=== PATIENT | male | born 1980 | race African-American/Black ===

== ENCOUNTER 2018-09-07 14:42 | Emergency (ER) | payer MEDICAID | END 2018-09-07 16:34 | disposition left against medical advice (07) | LOC: FTE 14:42 | DX: Z02.6 Encounter for examination for insurance purposes (principal); R50.9 Fever, unspecified; R00.0 Tachycardia, unspecified; I10 Essential (primary) hypertension | CPT/HCPCS: 99282; Z7502 ==